=== PATIENT | female | born 1955 | race Caucasian/White ===

== ENCOUNTER 2022-01-12 05:16 | Emergency (ER) | payer MEDICARE, OTHER ==
[2022-01-12] MEDS: Ondansetron 4 MG/2 ML SDV IVPUSH ONE (05:39)
[2022-01-12] MEDS: Ketorolac 30 MG/ML SDV IVPUSH ONE (05:40)
[2022-01-12] MEDS: Ketorolac 30 MG/ML SDV IM ONE (05:40)
[2022-01-12] MEDS ORDERED: Sodium Chloride 0.9% 10 ML Syringe FLUSH PRN (05:42)
[2022-01-12] MEDS: Sodium Chloride 0.9% 1,000 ML IV ONE (05:55)
== END 2022-01-12 06:59 | disposition home or self-care (01) ==
LOC: KA.ED 05:16
DX: R51.9 Headache, unspecified (principal); H53.142 Visual discomfort, left eye; R11.2 Nausea with vomiting, unspecified; K21.9 Gastro-esophageal reflux disease without esophagitis; E03.9 Hypothyroidism, unspecified; Z79.899 Other long term (current) drug therapy
CPT/HCPCS: 96372; 96374; 96375; 99283-25; 99284; J1885; J2405; J7030